=== PATIENT | female | born 1965 | race Caucasian/White ===

== ENCOUNTER 2018-03-04 10:37 | Emergency (ER) | payer OTHER ==
[2018-03-04 11:15] LABS: URINE PH (Dip) POC 5.5 (5.0-8.5)
[2018-03-04 11:15] LABS: URINE BLOOD (Dip) POC Trace-intact (NEGATIVE); URINE KETONES (Dip) POC Negative (NEGATIVE); URINE LEUKOCYTE EST (Dip) POC Trace (NEGATIVE); URINE NITRITE (Dip) POC Negative (NEGATIVE); URINE TOTAL PROTEIN POC Negative (NEGATIVE)
[2018-03-04] MEDS: predniSONE 20 MG TAB PO (11:39)
[2018-03-04] MEDS: KETOROLAC 30 MG INJ IM (11:40)
== END 2018-03-04 13:07 | disposition home or self-care (01) ==
LOC: FTE 10:37
DX: M54.41 Lumbago with sciatica, right side (principal); M79.604 Pain in right leg; E11.9 Type 2 diabetes mellitus without complications; I10 Essential (primary) hypertension
CPT/HCPCS: 72131; 81003; 81025; 96372; 99285-25

== ENCOUNTER 2018-09-24 06:04 | Day surgery (SDC) | payer OTHER ==
[2018-09-24] MEDS ORDERED: PROPOFOL 20 ML (07:03)
[2018-09-24] MEDS ORDERED: LIDOCAINE 2% (SDV) 5 ML INJ (07:03)
[2018-09-24] MEDS ORDERED: NEOSTIGMINE 3 MG/3 ML SYRINGE (07:03)
[2018-09-24] MEDS ORDERED: GLYCOPYRROLATE 0.4 MG INJ (07:03)
[2018-09-24] MEDS ORDERED: FENTAnyl 50 MCG/ML VIAL (07:03)
[2018-09-24] MEDS ORDERED: ROCURONIUM 50 MG INJ (07:03)
[2018-09-24] MEDS ORDERED: MIDAZOLAM 1 MG/ML 2 ML INJ (07:03)
[2018-09-24] MEDS ORDERED: DEXAMETHASONE 4 MG/ML 5 ML INJ (07:10)
[2018-09-24] MEDS ORDERED: ONDANSETRON 4 MG INJ ×2 (07:11→09:33)
[2018-09-24] MEDS ORDERED: HYDROCORTISONE 100 MG INJ (07:11)
[2018-09-24] MEDS: BUPIVACAINE 0.5% (SDV) 30 ML INJ (08:11)
[2018-09-24] MEDS: LIDOCAINE 1% (MDV) 20 ML INJ (08:11)
[2018-09-24] MEDS: BUPIVACAINE 0.5%/EPI (SDV) 30 ML INJ (08:12)
[2018-09-24] MEDS ORDERED: METOCLOPRAMIDE 10 MG INJ IV (09:30)
[2018-09-24] MEDS ORDERED: OXYCODONE/ACETAMINOPHEN (5/325) TAB PO (09:30)
[2018-09-24] MEDS ORDERED: hydrALAzine 20 MG INJ IV (09:30)
[2018-09-24] MEDS ORDERED: FENTAnyl 50 MCG/ML VIAL IV ×3 (09:30)
[2018-09-24] MEDS ORDERED: MEPERIDINE 25 MG INJ IV (09:30)
[2018-09-24] MEDS ORDERED: LABETALOL HCL 20MG INJ IV (09:30)
[2018-09-24] MEDS ORDERED: HYDROmorphONE 1 MG/5 ML IV SYRINGE IV ×2 (09:30→09:33)
[2018-09-24] MEDS ORDERED: EPHEDrine SULFATE 50 MG/5 ML SYG IV (09:30)
[2018-09-24] MEDS: HYDROmorphONE 1 MG/5 ML IV SYRINGE IV ×2 (09:35→09:43)
[2018-09-24] MEDS: ONDANSETRON 4 MG INJ IV (09:43)
[2018-09-24] MEDS ORDERED: HYDROCODONE/APAP (5/325) TAB PO ×2 (10:00)
== END 2018-09-24 10:40 | disposition home or self-care (01) ==
LOC: SDS 06:04
DX: L72.0 Epidermal cyst (principal); I10 Essential (primary) hypertension; E11.9 Type 2 diabetes mellitus without complications; Z79.4 Long term (current) use of insulin; E66.9 Obesity, unspecified; Z68.33 Body mass index [BMI] 33.0-33.9, adult
CPT/HCPCS: 14000; 82962; 88304; 88307